=== PATIENT | female | born 1980 | race Caucasian/White ===

== ENCOUNTER 2017-07-11 08:55 | Emergency (ER) | payer BC ==
[~2017-07-11] VITALS: Ht 165.1 cm; Wt 79.1 kg
[~2017-07-11 08:55] MED LIST: ESCI10TA17 PO; ESZO2TAB3 PO; NEBI2.5T2 PO; OMEP40CA PO
[2017-07-11 09:01] VITALS: TEMP 36.6; Ht 165.1 cm; Wt 79.1 kg
[2017-07-11] MEDS ORDERED: LORAZEPAM 1 MG TAB SL STA (09:36)
[2017-07-11 10:00] VITALS: O2SAT 100
--- NOTE | 2017-07-11 10:01 | EMERGENCY ROOM VISIT NOTE ---
History Report prepared by Urvashi: Marcelina Hooker Under the Supervision of: Dr. Sukh Lynne M.D. First contact with patient: 09:31 Chief Complaint: OTHER COMPLAINT Stated Complaint: SHAKING,TINGLING HANDS/LIPS,BLURRED VISION History of Present Illness The patient is a 36 year old female who presents to the Emergency Room with complaints of an episode of anxiety beginning 3 hours [employer] G[employer]. The patient took Advil cold and sinus this morning around 5am for sinus congestion and itchy, watery eyes. She has never taken this medication before. About 1.5 hours later she developed shaking in her hands and numbness and tingling in her lips and extremities. The patient states that she feels like she is going to crawl out of her skin. Her heart is racing and she states that she is "not hearing correctly." She denies any abdominal pain or urinary symptoms. She denies any personal history of thyroid problems. The patient has had a similar reaction after taking Benadryl and compazine in the past. Source of History: patient Onset: 3 hours [employer]AL[employer] GASOLINE Position: other (global) Quality: other (anxiety) Timing: other (episode) Modifying Factors (Worsening): other (Medication) Associated Symptoms: + numbness, No abdominal pain, No urinary symptoms Note: Pt has shaking. Review of Systems All systems have been listed, reviewed, and are negative other than those previously mentioned. Please see Additional Medical History Sheet. Past Medical & Surgical Medical Problems: (1) Acute costochondritis (2) Costochondral pain Family History Patient reports no known family medical history. Social History Smoking Status: Never Smoker Smokeless Tobacco Use: No Alcohol Use: occasionally Marital Status: Housing Status: lives with significant other Occupation Status: employed Current/Historical Medications Scheduled Escitalopram (Lexapro), 10 MG PO DAILY Allergies Coded Allergies: Prochlorperazine (Unverified Allergy, Unknown, ., 07/11/17) Physical Exam Vital Signs Date Time Temp Pulse Resp B/P (MAP) Pulse Ox O2 Delivery O2 Flow Rate FiO2 07/11/17 13:20 90 18 99/74 99 07/11/17 11:56 105 18 111/75 97 07/11/17 11:00 100 20 117/75 97 07/11/17 10:15 84 20 119/79 100 07/11/17 10:06 108 07/11/17 10:00 100 Room Air 07/11/17 09:01 36.6 108 24 145/85 96 Room Air Physical Exam GENERAL: Patient awake, alert, oriented x 3. Patient follows commands. Patient does not appear toxic. Patient is very anxious appearing. Patient is adequately hydrated and well-nourished. SKIN: No erythema, pallor, cyanosis or rash HEENT: Normal head, pupils equal, reactive to light and accommodation. Ears normal. Oral cavity and posterior pharynx appear normal. Neck: Without adenopathy, no neck vein distention. LUNGS: Tachypneic. Clear to auscultation. No wheezes, no rales, no rhonchi. HEART: Rapid and regular. No murmurs. No gallops. No rubs ABDOMEN: Soft, nontender. EXTREMITIES: No signs of trauma or infection NEUROLOGIC: Cranial nerves II-XII within normal limits. No gross motor sensory function deficits. PSYCHIATRIC: Patient is awake alert but appears very anxious. The patient is jittery and shaky. Medical Decision & Procedures Laboratory Results 07/11/17 09:48 07/11/17 09:48 Test 07/11/17 09:48 Red Blood Count 4.78 M/uL (4.2-5.4) Mean Corpuscular Volume 84.5 fL (80-100) Mean Corpuscular Hemoglobin 30.1 pg (25-34) Mean Corpuscular Hemoglobin Concent 35.6 g/dl (32-36) RDW Standard Deviation 40.1 fL (36.4-46.3) RDW Coefficient of Variation 13.2 % (11.5-14.5) Mean Platelet Volume 8.9 fL (7.4-10.4) Anion Gap 13.0 mmol/L (3-11) Est Creatinine Clear Calc Drug Dose 104.3 ml/min Estimated GFR () 115.3 Estimated GFR (Non- 99.5 BUN/Creatinine Ratio 8.9 (10-20) Calcium Level 9.1 mg/dl (8.5-10.1) Thyroid Stimulating Hormone (TSH) 2.600 uIu/ml (0.300-4.500) Laboratory results as stated above per my review. Medications Administered Medications (Trade) Dose Ordered Sig/[place] Route Start Time Stop Time Status Last Admin Dose Admin Lorazepam (Ativan Tab) 1 mg NOW STAT SL 07/11/17 09:36 07/11/17 09:38 DC 07/11/17 09:43 1 MG Lorazepam (Ativan Inj) 1 mg NOW STAT IV 07/11/17 10:52 07/11/17 10:53 DC 07/11/17 11:01 1 MG Lorazepam (Ativan Inj) 1 mg NOW STAT IV 07/11/17 12:03 07/11/17 12:06 DC 07/11/17 12:22 1 MG Lorazepam (Ativan 1MG Home Pack) 1 homepack UD ONCE PO 07/11/17 13:00 07/11/17 13:01 DC 07/11/17 13:00 1 HOMEPACK ECG Indication: other Rate (beats per minute): 89 Rhythm: sinus with SA Findings: no acute ischemic change, no ectopy ED Course 0931: Past medical records reviewed. The patient was evaluated in room A2. A complete history and physical examination was performed. 0936: Ativan 1 mg SL 1051: Upon reevaluation the patient is still experiencing symptoms. 1052: Ativan 1 mg IV 1159: I reassessed the patient and she is better but still uncomfortable. 1203: Ativan 1 mg IV 1249: I reassessed the patient at this time. She is feeling better and eating lunch. I discussed the results and treatment plan with the patient. I answered all pertaining questions that she had. She expressed understanding and verbalized agreement. The patient will be discharged home. 1300: Ativan 1 mg PO 1 homepack Medical Decision Differential diagnoses includes hyperventilation, anxiety. hyperthyroidism, medication reaction, akathisia. 36-year-old female with significant anxiety and hyperventilation after taking cold medication this morning. The patient has had some similar type symptoms in the past after certain medications including Benadryl. The patient was observed for over 4 hours. The patient improved dramatically after multiple doses of Ativan. The patient's symptoms are most consistent with akathisia. Medication Reconcilliation Current Medication List: was personally reviewed by me Blood Pressure Screening Patient's blood pressure: Normal blood pressure Impression Primary Impression: Drug induced akathisia Scribe Attestation The scribe's documentation has been prepared under my direction and personally reviewed by me in its entirety. I confirm that the note above accurately reflects all work, treatment, procedures, and medical decision making performed by me. Departure Information Dispostion Home / Self-Care Referrals No Doctor, Assigned (PCP) Forms HOME CARE DOCUMENTATION FORM, IMPORTANT VISIT INFORMATION, WORK / SCHOOL INSTRUCTIONS Patient Instructions My [facility] Additional Instructions 1 Ativan every 4 hours as needed for anxiety symptoms. Refrain from taking any cold medications.
[2017-07-11 10:02] LABS: HEMATOCRIT 40.4 % (37-47); MEAN CELL VOLUME 84.5 fL (80-100); MEAN CORPUSCULAR HEMOGLOBIN 30.1 pg (25-34); MEAN CORPUSCULAR HGB CONC 35.6 g/dl (32-36); MEAN PLATELET VOLUME 8.9 fL (7.4-10.4); PLATELET COUNT 177 K/uL (130-400); RED BLOOD COUNT 4.78 M/uL (4.2-5.4); WHITE BLOOD COUNT 9.32 K/uL (4.8-10.8)
[2017-07-11 10:18] LABS: BUN/CREATININE RATIO 8.9 (10-20); CALCIUM 9.1 mg/dl (8.5-10.1); CREATININE 0.76 mg/dl (0.60-1.20)
[2017-07-11 10:28] LABS: THYROID STIMULATING HORMONE 2.6 uIu/ml (0.300-4.500)
[2017-07-11] MEDS ORDERED: LORAZEPAM 2 MG/ML 1 ML VIAL IV STA ×2 (10:52→12:03)
[2017-07-11] MEDS ORDERED: ATIVAN 1MG HOMEPACK PO ONE (13:00)
[2017-07-11 13:20] VITALS: BP 99/74; PULSE 90; O2SAT 99
== END 2017-07-11 13:21 | disposition home or self-care (01) ==
LOC: C.EDB 08:57 → C.EDA 13:21
DX: G25.71 Drug induced akathisia (principal); Z79.899 Other long term (current) drug therapy

== ENCOUNTER 2019-12-15 11:49 | Inpatient (IN) ==
--- OUTSIDE RECORDS SUMMARY | 2019-12-15 11:51 | External Medical Summary | Continuity of Care Document ---
:1980 Author Name Fred Wang, Provider Address Unavailable Unavailable , Care Team Providers Name Role Phone Unavailable Unavailable Unavailable Jonathan Hatch PA-C Unavailable [email or web address] Bradly TOWNSEND Unavailable [email or web address] Unavailable Unavailable Unavailable Unavailable Unavailable Problems Atypical chest pain (786.59) (R07.89) Sinus tachycardia (427.89) (R00.0) Abdominal tenderness, right upper quadrant (789.61) (R10.811 ) Neck pain (723.1) (M54.2) Palpitations (785.1) (R00.2) 2nd degree AV block (426.13) (I44.1) Diarrhea (787.91) (R19.7) Vitamin D deficiency (268.9) (E55.9) Vitamin B12 deficiency (266.2) (E53.8) Esophageal reflux (530.81) (K21.9) Fatty liver (571.8) (K76.0) Nausea (787.02) (R11.0) Elevated transaminase level (790.4) (R74.0) Allergies and Adverse Reactions Advil CAPS (Allergy) Reaction: Nausea, O ther Compazine SOLN (Allergy) Reaction: Irrit ability, Other Medications Metoprolol Succinate ER 50 MG Oral Table t Extended Release 24 Hour; TAKE 1 TABLET DAILY. CHRISTOPHER Hatch Start: 26-Sep-2014 Quantity: 30 Refills: 6 Mirena (52 MG) IUD Felipe Refills: 0 Omeprazole 40 MG Oral Capsule Delayed Re lease; TAKE 1 CAPSULE Daily Take in AM 1/2 hour before breakfast CaseDO Job Start: 01-Mar-2013 Quantity: 90 Refills: 3 Procedures History of Ovarian Surgery Status: Compl eted History of Gastric Surgery Status: Compl eted History of Laparoscopic Sling Operation For Stress Incontine nce Status: Completed History of Gynecologic Services Intrauterine Device (IUD) Status: Completed Insertion History of Cholecystectomy Status: Compl eted History of Gastric Surgery For Morbid Obesity Bypass With Status: Completed Dayana-en-Y Immunizations PPD On: 26-Aug-2012 16:21 Lot #: [id number], SANOFI PASTEUR Family History Grandmother Family history of Ulcerative Colitis Status: Active Mother No pertinent family history (V49.89) (Z78.9) Status: Active Social History - Smoking Status Never smoker Plan of Treatment Planned Observations Planned Goals not documented Results No Known Results Results not documented
--- OUTSIDE RECORDS SUMMARY | 2019-12-15 11:52 | External Medical Summary | Continuity of Care Document ---
:1980 Author Name Fred Wang, Provider Address Unavailable Unavailable , Care Team Providers Name Role Phone Unavailable Unavailable Unavailable Jonathan Hatch PA-C Unavailable [email or web address] Marcus [email or web address] Unavailable [email or web address] Unavailable Unavailable Unavailable Unavailable Unavailable Problems Neck pain (723.1) (M54.2) Abdominal tenderness, right upper quadrant (789.61) (R10.811 ) Diarrhea (787.91) (R19.7) Esophageal reflux (530.81) (K21.9) Vitamin B12 deficiency (266.2) (E53.8) Vitamin D deficiency (268.9) (E55.9) Elevated transaminase level (790.4) (R74.0) 2nd degree AV block (426.13) (I44.1) Palpitations (785.1) (R00.2) Atypical chest pain (786.59) (R07.89) Sinus tachycardia (427.89) (R00.0) Nausea (787.02) (R11.0) Fatty liver (571.8) (K76.0) Allergies and Adverse Reactions Advil CAPS (Allergy) Reaction: Nausea, O ther Compazine SOLN (Allergy) Reaction: Irrit ability, Other Medications Omeprazole 40 MG Oral Capsule Delayed Re lease; TAKE 1 CAPSULE Daily Take in AM 1/2 hour before breakfast CaseDO Job Start: 01-Mar-2013 Quantity: 90 Refills: 3 Mirena (52 MG) IUD Felipe Refills: 0 Metoprolol Succinate ER 50 MG Oral Table t Extended Release 24 Hour; TAKE 1 TABLET DAILY. CHRISTOPHER Hatch Start: 26-Sep-2014 Quantity: 30 Refills: 6 Procedures History of Ovarian Surgery Status: Compl eted History of Gastric Surgery Status: Compl eted History of Laparoscopic Sling Operation For Stress Incontine nce Status: Completed History of Gynecologic Services Intrauterine Device (IUD) Status: Completed Insertion History of Cholecystectomy Status: Compl eted History of Gastric Surgery For Morbid Obesity Bypass With Status: Completed Dayana-en-Y Immunizations PPD On: 26-Aug-2012 16:21 Lot #: [id number], SANOFI PASTEUR Family History Grandmother Family history of Ulcerative Colitis Status: Active Mother No pertinent family history (V49.89) (Z78.9) Status: Active Social History - Smoking Status Never smoker Plan of Treatment Planned Observations Planned Goals not documented Results No Known Results Results not documented
[2019-12-15] MEDS ORDERED: MULTI-VITAMIN INFUSION 10 ML, THIAMINE HCL 100 MG, FOLIC ACID 1 MG in SODIUM CHLORIDE 0... IV ONE (12:44)
[2019-12-15] MEDS ORDERED: ONDANSETRON INJ 2 MG/ML 2 ML VIAL IV STA ×2 (12:44→16:13)
[2019-12-15] MEDS ORDERED: LORazepam 1 MG TAB SL STA (13:13)
[2019-12-15 13:34] LABS: Basophils # (auto) 0.02 K/uL (0-0.2); Basophils % (auto) 0.3 %; Hematocrit (blood only) 48.9 % (37-47); Hemoglobin 17.4 g/dL (12.0-16.0); Immature Granulocytes # (auto) 0.01 K/uL (0.00-0.02); Immature Granulocytes % (auto) 0.1 %; Lymphocytes # (auto) 1.56 K/uL (1.2-3.4); Lymphocytes % (auto) 22.5 %; Mean Corpuscular Hemoglobin 31.4 pg (25-34); Mean Corpuscular Hgb Conc 35.6 g/dL (32-36); Mean Corpuscular Volume 88.3 fL (80-100); Mean Platelet Volume 8.9 fL (7.4-10.4); Monocytes # (auto) 0.25 K/uL (0.11-0.59); Monocytes % (auto) 3.6 %; Neutrophils # (auto) 5.09 K/uL (1.4-6.5); Neutrophils % (auto) 73.5 %; Platelet Count 153 K/uL (130-400); RDW Standard Deviation 41.5 fL (36.4-46.3); Red Blood Count 5.54 M/uL (4.2-5.4); White Blood Count 6.93 K/uL (4.8-10.8)
[2019-12-15 13:51] LABS: Appearance Urine Cloudy (Clear); Bacteria Urine Automated 1+ (Negative); Bilirubin Urine Negative (Negative); Blood Urine Trace (Negative); Color Urine Yellow; Epithelial Cell Urine Auto >30 /lpf (0-5); Glucose Urine UA Negative (Negative); Ketones Urine 1+ (Negative); Leukocyte Esterase Urine Negative (Negative); Nitrite Urine Negative (Negative); Protein Urine Trace (Negative); RBC Urine Automated 0-4 /hpf (0-4); Specific Gravity Urine 1.009 (1.000-1.030); Urobilinogen Urine Negative (Negative); pH Urine 5.5 (4.5-7.5)
[2019-12-15 13:52] LABS: Acetaminophen < 2 ug/ml (10-30); Albumin Level 3.8 gm/dl (3.4-5.0); BUN Creatinine Ratio 8.7 (10-20); Bilirubin,Total 0.5 mg/dl (0.2-1); Calcium 8.6 mg/dl (8.5-10.1); Creatinine Clr Calc Pharmacy 77.5 ml/min; Est GFR (African American) 97.3; Est GFR (Non-African American) 83.9; Globulin 3.8 gm/dl (2.5-4.0); Potassium 3.9 mmol/L (3.5-5.1); Salicylate 1.8 mg/dl (2.8-20); Thyroid Stimulating Hormone 1.3 uIu/ml (0.300-4.500); Total Protein 7.6 gm/dl (6.4-8.2)
[2019-12-15 13:59] LABS: Amphetamines+Metham, Urine Neg (Neg); Barbiturates, Urine Neg (Neg); Benzodiazepine, Urine Neg (Neg); Cocaine, Urine Neg (Neg); MDMA (Ecstacy), Urine Neg (Neg); Methadone, Urine Neg (Neg); Opiate, Urine Neg (Neg); Phencyclidine, Urine Neg (Neg)
--- NOTE | 2019-12-15 14:20 | Emergency Department Note ---
Entered by Avril Sandy acting as a scribe for History of Present Illness General Chief complaint: Mental Health Evaluation Stated complaint: ALCOHOL OVERDOSE, FALL Time Seen by Provider: 12/15/19 12:03 Source: patient History of Present Illness Provider complaint: Alcohol Overdose Onset (ago): hour(s) 2 Location: head Relieved By: + none Exacerbated By: + other (Family stress) Associated symptoms: + other (SI) The patient is a 39 year old female who presents to the Emergency Room with complaints of alcohol overdose that occurred about 2 hours ago. The patient states that her symptoms are exacerbated by stress and not relieved by anything specific. The patient notes that her cousin's son shot himself in the face on Thursday night and she had to help her cousin plan the arrangements and clean up the son's room and she is not coping well. The patient states that she took an Uber to the liquor store around 10am and purchased a bottle of vodka because she "just hurt so bad." The patient states that she does not usu ally use alcohol for coping mechanisms and does not know how much she drank. The patient reports experiencing positive SI as a result of the drinking binge that she went on this morning and states that she "feels like a loser." According to the patient's , the patient drinks socially but goes on "binge benders" and drinks half bottles of vodka at a time during these binges. The patient's sband states that she was drinking Thursday, Thursday, Thursday, Thursday, and this morning and has been sneaking around. On Thursday night the patient went into the bathroom and came out with a handful of pills and said "she just wants to ." This morning the patient's states that he found the patient lying face down in a pile of leaves in their mendez with a 750mL bottle of vodka half empty next to her. 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 Home Medications Home Medications Medication Instructions Recorded Confirmed Type Escitalopram (Lexapro) 10 mg PO DAILY #0 tab 11/20/13 12/15/19 History trazodone 25 mg PO HS PRN 12/15/19 12/15/19 History Allergies Allergy/AdvReac Type Severity Reaction Status Date / Time No Known Allergies Allergy Unverified 12/15/19 14:11 Past Med/Surg History Medical History No pertinent past medical history Surgical History H/O unilateral oophorectomy Family History Other No pertinent family history in first degree relatives Social History Feels Safe at Home: Yes Smoking Status: Never smoker Review of Systems See HPI for pertinent positives & negatives. and A total of 10 systems reviewed and were otherwise negative Physical Exam Vital Signs Vital Signs - 24 hr 12/15/19 11:49 12/15/19 11:51 12/15/19 15:32 Temperature 36.8 C Temperature Source Oral Pulse Rate 149 H 125 H Pulse Rate [Apical] Pulse Rate from SpO2 Sensor 124 H Respiratory Rate 20 22 Respiratory Effort / Characteristics Non-Labored Spontaneous Respiratory Depth Normal Respiratory Pattern Regular Blood Pressure 129/83 83/52 L Blood Pressure [Left Arm] Blood Pressure Mean 98 71 Blood Pressure Mean [Left Arm] Blood Pressure Position Sitting Pulse Oximetry 98 96 94 Oxygen Delivery Method Room Air Room Air Sepsis Recent Fever Within 48 Hours No Sepsis New/Unexplained Change in Mental Status No Sepsis Action Taken by Nursing No Action Required 12/15/19 15:38 12/15/19 15:40 12/15/19 16:00 Temperature Temperature Source Pulse Rate 119 H 121 H Pulse Rate [Apical] 126 H Pulse Rate from SpO2 Sensor 120 H 121 H Respiratory Rate 20 21 19 Respiratory Effort / Characteristics Non-Labored Spontaneous Respiratory Depth Normal Respiratory Pattern Regular Blood Pressure 113/74 Blood Pressure [Left Arm] 83/52 L Blood Pressure Mean 83 Blood Pressure Mean [Left Arm] 62 Blood Pressure Position Pulse Oximetry 94 94 97 Oxygen Delivery Method Room Air Sepsis Recent Fever Within 48 Hours Sepsis New/Unexplained Change in Mental Status Sepsis Action Taken by Nursing 12/15/19 16:30 12/15/19 17:00 12/15/19 17:30 Temperature Temperature Source Pulse Rate 98 H 114 H 109 H Pulse Rate [Apical] Pulse Rate from SpO2 Sensor 99 H 117 H 110 H Respiratory Rate 13 19 22 Respiratory Effort / Characteristics Respiratory Depth Respiratory Pattern Blood Pressure 108/71 94/60 L Blood Pressure [Left Arm] Blood Pressure Mean 80 77 Blood Pressure Mean [Left Arm] Blood Pressure Position Pulse Oximetry 98 97 94 Oxygen Delivery Method Sepsis Recent Fever Within 48 Hours Sepsis New/Unexplained Change in Mental Status Sepsis Action Taken by Nursing 12/15/19 18:00 12/15/19 18:30 12/15/19 19:00 Temperature Temperature Source Pulse Rate 118 H 123 H 111 H Pulse Rate [Apical] Pulse Rate from SpO2 Sensor 118 H 128 H 107 H Respiratory Rate 18 18 20 Respiratory Effort / Characteristics Respiratory Depth Respiratory Pattern Blood Pressure 93/60 L 118/72 113/76 Blood Pressure [Left Arm] Blood Pressure Mean 65 90 88 Blood Pressure Mean [Left Arm] Blood Pressure Position Pulse Oximetry 94 96 97 Oxygen Delivery Method Sepsis Recent Fever Within 48 Hours Sepsis New/Unexplained Change in Mental Status Sepsis Action Taken by Nursing 12/15/19 19:30 12/15/19 20:00 Temperature Temperature Source Pulse Rate 110 H 128 H Pulse Rate [Apical] Pulse Rate from SpO2 Sensor 109 H Respiratory Rate 12 15 Respiratory Effort / Characteristics Respiratory Depth Respiratory Pattern Blood Pressure 112/89 116/72 Blood Pressure [Left Arm] Blood Pressure Mean 94 81 Blood Pressure Mean [Left Arm] Blood Pressure Position Pulse Oximetry 96 Oxygen Delivery Method Sepsis Recent Fever Within 48 Hours Sepsis New/Unexplained Change in Mental Status Sepsis Action Taken by Nursing CONSTITUTIONAL/VITAL SIGNS: Reviewed / noted above. GENERAL: Non-toxic in appearance. Smell of alcohol on her breath, INTEGUMENTARY: Warm, dry, and [place]. HEAD: Normocephalic. EYES: without scleral icterus or trauma. ENT/OROPHARYNX: clear and moist. LYMPHADENOPATHY/NECK: Is supple without lymphadenopathy or meningismus. RESPIRATORY: Lungs clear and equal. CARDIOVASCULAR: Regular rate and rhythm. GI/ABDOMEN: Soft and nontender. No organomegaly or pulsatile mass. No rebound or guarding. Normal bowel sounds. EXTREMITIES: Warm and well perfused. BACK: No CVA tenderness. NEUROLOGICAL: Intact without focal deficits. PSYCHIATRIC: Depressed affect. MUSCULOSKELETAL: Normally developed with good muscle tone. Course Course 1207: Past medical records reviewed. The patient was evaluated in room A05. A complete history and physical exam was performed. 20:[address] Vishal Administered Medications Discontinued Medications Multivitamins 10 ml/ Thiamine HCl 100 mg/ Folic Acid 1 mg/Sodium Chloride 1,011.2 mls @ 1,011.2 mls/hr IV .Q1H ONE Stop: 12/15/19 13:43 Last Infusion: 12/15/19 14:29 Dose: 0 mls/hr Documented by: [id number] Admin: 12/15/19 13:28 Dose: 1,011.2 mls/hr Documented by: [id number] Lorazepam (Ativan) 1 mg in 2 mls @ 2 mls/min IV NOW STA Stop: 12/15/19 16:13 Last Admin: 12/15/19 16:18 Dose: 2 mls/min Documented by: [id number] Lorazepam (Ativan) 1 mg in 2 mls @ 2 mls/min IV NOW STA Stop: 12/15/19 19:12 Last Admin: 12/15/19 19:34 Dose: 2 mls/min Documented by: [id number] Sodium Chloride (Nss) 500 mls @ 999 mls/hr IV .Q31M ONE Stop: 12/15/19 19:41 Last Infusion: 12/15/19 20:14 Dose: 0 mls/hr Documented by: [id number] Admin: 12/15/19 19:34 Dose: 999 mls/hr Documented by: [id number] Lorazepam (Ativan) 1 mg SL NOW STA Stop: 12/15/19 13:14 Last Admin: 12/15/19 13:28 Dose: 1 mg Documented by: [id number] Ondansetron HCl (Zofran) 4 mg IV NOW STA Stop: 12/15/19 12:45 Last Admin: 12/15/19 13:28 Dose: 4 mg Documented by: [id number] Ondansetron HCl (Zofran) 4 mg IV NOW STA Stop: 12/15/19 16:14 Last Admin: 12/15/19 16:17 Dose: 4 mg Documented by: [id number] Medical Decision Making Differential Diagnosis Differential diagnosis: Etiologies such as psychiatric disorder, infection, hypoglycemia, electrolyte abnormalities, cardiac sources, intracerebral event, toxicological process, neurologic disorder, as well as others were entertained. Medical Records Attestation: I reviewed the patient's medical records. Home Medications Current Medication List: was personally reviewed by me Laboratory Data Attestation: I reviewed the patient's lab results. Result diagrams: 12/15/19 13:05 12/15/19 13:05 Lab Results 12/15/19 12/15/19 12/15/19 Range/Units 12:03 12:03 12:03 WBC (4.8-10.8) K/uL RBC (4.2-5.4) M/uL Hgb (12.0-16.0) g/dL Hct (37-47) % MCV (80-100) fL MCH (25-34) pg MCHC (32-36) g/dL RDW Std Deviation (36.4-46.3) fL RDW Coeff of Jose Enrique (11.5-14.5) % Plt Count (130-400) K/uL MPV (7.4-10.4) fL Immature Gran % (Auto) % Neut % (Auto) % Lymph % (Auto) % [facility] [facility] % (Auto) % Eos % (Auto) % Baso % (Auto) % Immature Gran # (Auto) (0.00-0.02) K/uL Neut # (Auto) (1.4-6.5) K/uL Lymph # (Auto) (1.2-3.4) K/uL [facility] # (Auto) (0.11-0.59) K/uL Eos # (Auto) (0-0.5) K/uL Baso # (Auto) (0-0.2) K/uL Sodium (136-145) mmol/L Potassium (3.5-5.1) mmol/L Chloride (98-107) mmol/L Carbon Dioxide (21-32) mmol/L Anion Gap (3-11) BUN (7-18) mg/dl Creatinine (0.6-1.2) mg/dl Est Cr Clr Drug Dosing ml/min Est GFR ( Amer) Est GFR (Non-Af Amer) BUN/Creatinine Ratio (10-20) Glucose (70-99) mg/dl Calcium (8.5-10.1) mg/dl Total Bilirubin (0.2-1) mg/dl AST (15-37) U/L ALT (12-78) U/L Alkaline Phosphatase (45-117) U/L Total Protein (6.4-8.2) gm/dl Albumin (3.4-5.0) gm/dl Globulin (2.5-4.0) gm/dl Albumin/Globulin Ratio (0.9-2) TSH (0.300-4.500) uIu/ml Urine Color Yellow Urine Appearance Cloudy A (Clear) Urine pH 5.5 (4.5-7.5) Ur Specific [place] 1.009 (1.000-1.030) Urine Protein Trace H (Negative) Urine Glucose (UA) Negative (Negative) Urine Ketones 1+ H (Negative) Urine Blood Trace H (Negative) Urine Nitrite Negative (Negative) Urine Bilirubin Negative (Negative) Urine Urobilinogen Negative (Negative) Ur Leukocyte Esterase Negative (Negative) Urine WBC (Auto) 1-5 (0-5) /hpf Urine RBC (Auto) 0-4 (0-4) /hpf U Hyaline Cast (Auto) 1-5 (0-5) /lpf U Epithel Cells (Auto) >30 H (0-5) /lpf Urine Bacteria (Auto) 1+ H (Negative) POC Ur Test NEG (NEG) Salicylates (2.8-20) mg/dl Urine Opiates Screen Neg (Neg) Ur Methadone, Qual Neg (Neg) Acetaminophen (10-30) ug/ml Urine Barbiturates Neg (Neg) Ur Phencyclidine (PCP) Neg (Neg) U Amphetamin/Meth Scrn Neg (Neg) MDMA (Ecstasy) Screen Neg (Neg) U Benzodiazepines Scrn Neg (Neg) Ur Cocaine Metabolite Neg (Neg) U Marijuana (THC) Screen Neg (Neg) Ethyl Alcohol mg/dL (0-3) mg/dl 12/15/19 12/15/19 12/15/19 Range/Units 13:05 13:05 13:05 WBC 6.93 (4.8-10.8) K/uL RBC 5.54 H (4.2-5.4) M/uL Hgb 17.4 H (12.0-16.0) g/dL Hct 48.9 H (37-47) % MCV 88.3 (80-100) fL MCH 31.4 (25-34) pg MCHC 35.6 (32-36) g/dL RDW Std Deviation 41.5 (36.4-46.3) fL RDW Coeff of Jose Enrique 13.0 (11.5-14.5) % Plt Count 153 (130-400) K/uL MPV 8.9 (7.4-10.4) fL Immature Gran % (Auto) 0.1 % Neut % (Auto) 73.5 % Lymph % (Auto) 22.5 % [facility] % (Auto) 3.6 % Eos % (Auto) 0.0 % Baso % (Auto) 0.3 % Immature Gran # (Auto) 0.01 (0.00-0.02) K/uL Neut # (Auto) 5.09 (1.4-6.5) K/uL Lymph # (Auto) 1.56 (1.2-3.4) K/uL [facility] # (Auto) 0.25 (0.11-0.59) K/uL Eos # (Auto) 0.00 (0-0.5) K/uL Baso # (Auto) 0.02 (0-0.2) K/uL Sodium 141 (136-145) mmol/L Potassium 3.9 (3.5-5.1) mmol/L Chloride 103 (98-107) mmol/L Carbon Dioxide 24 (21-32) mmol/L Anion Gap 14.0 H (3-11) BUN 7 (7-18) mg/dl Creatinine 0.86 (0.6-1.2) mg/dl Est Cr Clr Drug Dosing 77.5 ml/min Est GFR ( Amer) 97.3 Est GFR (Non-Af Amer) 83.9 BUN/Creatinine Ratio 8.7 L (10-20) Glucose 107 H (70-99) mg/dl Calcium 8.6 (8.5-10.1) mg/dl Total Bilirubin 0.5 (0.2-1) mg/dl AST 85 H (15-37) U/L ALT 47 (12-78) U/L Alkaline Phosphatase 104 (45-117) U/L Total Protein 7.6 (6.4-8.2) gm/dl Albumin 3.8 (3.4-5.0) gm/dl Globulin 3.8 (2.5-4.0) gm/dl Albumin/Globulin Ratio 1.0 (0.9-2) TSH 1.300 (0.300-4.500) uIu/ml Urine Color Urine Appearance (Clear) Urine pH (4.5-7.5) Ur Specific [place] (1.000-1.030) Urine Protein (Negative) Urine Glucose (UA) (Negative) Urine Ketones (Negative) Urine Blood (Negative) Urine Nitrite (Negative) Urine Bilirubin (Negative) Urine Urobilinogen (Negative) Ur Leukocyte Esterase (Negative) Urine WBC (Auto) (0-5) /hpf Urine RBC (Auto) (0-4) /hpf U Hyaline Cast (Auto) (0-5) /lpf U Epithel Cells (Auto) (0-5) /lpf Urine Bacteria (Auto) (Negative) POC Ur Test (NEG) Salicylates 1.8 L (2.8-20) mg/dl Urine Opiates Screen (Neg) Ur Methadone, Qual (Neg) Acetaminophen < 2 L (10-30) ug/ml Urine Barbiturates (Neg) Ur Phencyclidine (PCP) (Neg) U Amphetamin/Meth Scrn (Neg) MDMA (Ecstasy) Screen (Neg) U Benzodiazepines Scrn (Neg) Ur Cocaine Metabolite (Neg) U Marijuana (THC) Screen (Neg) Ethyl Alcohol mg/dL (0-3) mg/dl 12/15/19 Range/Units 13:05 WBC (4.8-10.8) K/uL RBC (4.2-5.4) M/uL Hgb (12.0-16.0) g/dL Hct (37-47) % MCV (80-100) fL MCH (25-34) pg MCHC (32-36) g/dL RDW Std Deviation (36.4-46.3) fL RDW Coeff of Jose Enrique (11.5-14.5) % Plt Count (130-400) K/uL MPV (7.4-10.4) fL Immature Gran % (Auto) % Neut % (Auto) % Lymph % (Auto) % [facility] [place] % (Auto) % Eos % (Auto) % Baso % (Auto) % Immature Gran # (Auto) (0.00-0.02) K/uL Neut # (Auto) (1.4-6.5) K/uL Lymph # (Auto) (1.2-3.4) K/uL [facility] [place] # (Auto) (0.11-0.59) K/uL Eos # (Auto) (0-0.5) K/uL Baso # (Auto) (0-0.2) K/uL Sodium (136-145) mmol/L Potassium (3.5-5.1) mmol/L Chloride (98-107) mmol/L Carbon Dioxide (21-32) mmol/L Anion Gap (3-11) BUN (7-18) mg/dl Creatinine (0.6-1.2) mg/dl Est Cr Clr Drug Dosing ml/min Est GFR ( Amer) Est GFR (Non-Af Amer) BUN/Creatinine Ratio (10-20) Glucose (70-99) mg/dl Calcium (8.5-10.1) mg/dl Total Bilirubin (0.2-1) mg/dl AST (15-37) U/L ALT (12-78) U/L Alkaline Phosphatase (45-117) U/L Total Protein (6.4-8.2) gm/dl Albumin (3.4-5.0) gm/dl Globulin (2.5-4.0) gm/dl Albumin/Globulin Ratio (0.9-2) TSH (0.300-4.500) uIu/ml Urine Color Urine Appearance (Clear) Urine pH (4.5-7.5) Ur Specific [place] (1.000-1.030) Urine Protein (Negative) Urine Glucose (UA) (Negative) Urine Ketones (Negative) Urine Blood (Negative) Urine Nitrite (Negative) Urine Bilirubin (Negative) Urine Urobilinogen (Negative) Ur Leukocyte Esterase (Negative) Urine WBC (Auto) (0-5) /hpf Urine RBC (Auto) (0-4) /hpf U Hyaline Cast (Auto) (0-5) /lpf U Epithel Cells (Auto) (0-5) /lpf Urine Bacteria (Auto) (Negative) POC Ur Test (NEG) Salicylates (2.8-20) mg/dl Urine Opiates Screen (Neg) Ur Methadone, Qual (Neg) Acetaminophen (10-30) ug/ml Urine Barbiturates (Neg) Ur Phencyclidine (PCP) (Neg) U Amphetamin/Meth Scrn (Neg) MDMA (Ecstasy) Screen (Neg) U Benzodiazepines Scrn (Neg) Ur Cocaine Metabolite (Neg) U Marijuana (THC) Screen (Neg) Ethyl Alcohol mg/dL 295.0 H (0-3) mg/dl Blood Pressure Blood Pressure Findings: Elevated blood pressure Blood Pressure Disposition: Referred to patients primary care provider QUINTIN Narrative This is a 39-year-old female who presents to the ED with a chief complaint of mental health disorder and alcohol intoxication. The information was obtained from the patient which was somewhat inaccurate as well as from the . He corrected some of the inaccuracies in the patient's statements. The patient's cousins 13-year-old son committed suicide on Thursday. The patient and her helped to clean things up on Thursday or Thursday. The patient does have a history of binge alcohol use and has been drinking alcohol since the event. She has been sneaking alcohol and going to the alcohol store without her 's knowledge. She has been drinking vodka. The patient does report that she is depressed and feels like she wants to hurt herself over today's events of being brought here. She otherwise did not report wanting to hurt herself other than for feeling bad with regards to her alcohol consumption recently. Her reports that she has not had any thoughts of suicide previously. Further details listed above. The patient's physical exam as noted above. She does appear to be depressed and smells of alcohol. Her alcohol level today is 295 at 1300 hrs. She will be medically cleared for mental health evaluation at 2300 hrs. Her CBC, chemistry panel, TSH, test and urinalysis was unremarkable. test was negative and urinalysis appears contaminated. Talk screen was negative. The patient was given IV Zofran x2 for nausea as well as a banana bag IV as well as several doses of p.o./IV Ativan for anxiety. She will need evaluated at 2300 hrs. by the mental health watch caser. The patient was signed out to Dr. Rodgers at shift change (8:30PM). Impression & Plan Alcohol intoxication, Depression Discharge Plan Visit Data Chief Complaint: Mental Health Evaluation Stated Complaint: ALCOHOL OVERDOSE, FALL Other Complaint: Alcohol Intoxication ED Provider: Oneil Perez Discharge Problem: Alcohol intoxication, Depression Forms Stand Alone Forms: My [facility], Suicide Prevention Resources Prescriptions Prescriptions: No Action Escitalopram (Lexapro) 10 MG tablet 10 mg PO DAILY Qty: 0 RF: 0 trazodone 50 mg Tablet 25 mg PO HS PRN (Reason: Anxiety) RF: 0 Referrals Referrals: Corazon Yeh D.O. [Primary Care Provider] - Discharge Problem: Alcohol intoxication Qualifiers: Complication of substance-induced condition: uncomplicated Qualified Code(s): F10.920 - Alcohol use, unspecified with intoxication, uncomplicated Depression Qualifiers: Depression Type: reactive depression Qualified Code(s): F32.9 - Major depressive disorder, single episode, unspecified The scribe's documentation has been prepared under my direction and personally reviewed by me in its entirety. I confirm that the note above accurately reflects all work, treatment, procedures, and medical decision making performed by me.
[2019-12-15] MEDS ORDERED: LORazepam 1 MG/2 ML VIAL IV STA ×3 (16:12→22:49)
[2019-12-15] MEDS ORDERED: SODIUM CHLORIDE 0.9% 500 ML IV ONE (19:11)
--- NOTE | 2019-12-16 00:25 | Emergency Department Note ---
ED Visit Note The patient is a 39-year-old female that I received a change of shift signout from Dr. Perez. Please see his note for initial history and physical exam. The patient presented to the emergency department with her significant other with very severe mental health problems. The patient had significant suicidal ideation when she was very intoxicated at that time. The patient was reevaluated multiple times. She does have a history of alcohol intoxication in the past. The patient was treated with multiple doses of Ativan for early alcohol withdrawal symptoms. I reviewed the patient's laboratory and radiographic studies with her. She was no longer clinically intoxicated on my subsequent reevaluation. Patient was evaluated by the mental health outpatient case manager in the emergency department. She was not felt to need any further mental health treatment at this time. When I talked to the patient she has no suicidal homicidal ideation. She recently had a loss in her family and it sounds though this was a very reactive process but the patient is starting to have withdrawal symptoms and she states that she does not wish to continue drinking alcohol. I am very concerned that she may have more severe symptoms. I discussed this with the patient and she was agreeable to be evaluated by the hospitalist. I discussed this case with the on-call [facility] hospitalist. They have agreed to evaluate the patient in the emergency department for further management and disposition. . : Alcohol intoxication Qualifiers: Complication of substance-induced condition: uncomplicated Qualified Code(s): F10.920 - Alcohol use, unspecified with intoxication, uncomplicated Depression Qualifiers: Depression Type: reactive depression Qualified Code(s): F32.9 - Major depressive disorder, single episode, unspecified
[2019-12-16] MEDS ORDERED: LACTATED RINGER'S 1,000 ML IV ONE (01:01)
[2019-12-16] MEDS ORDERED: GABAPENTIN 600 MG TAB PO STA (01:01)
[2019-12-16] MEDS ORDERED: LORazepam 1 MG/2 ML VIAL IV STA (01:14)
--- NOTE | 2019-12-16 01:45 | History & Physical Report ---
Date of Service December 16, 2019 Assessment & Plan (1) Alcohol withdrawal: mood disorder, suboptimal Possible anxiety disorder GERD, stable on regimen Alcoholic hepatitis Medical telemetry DT precautions Follow LFTs, GI consult if with progression (Patient known to Dr. Graves.) Psych consult RE anxiety Social service RE discharge planning DVT prophylaxis per Lovenox subcu Full code History of Present Illness Chief Complaint: Alcohol overdose Primary Care Provider: Corazon Yeh History obtained from patient and records. Medical history significant for mood disorder, GERD, history of bariatric surgery. Patient undergoing a lot of stress the last few weeks with new work, recent in the family, and her daughter going off to college. Admits to alcohol binging. Transient suicidal ideation a few days back because she felt like a loser as per records. Patient was found by her lying face down outside their home yesterday intoxicated. She was brought to the ER for evaluation. Patient not suicidal as per psych liaison after evaluation at the ER. Patient contemplating alcohol detox. No prior history of alcohol withdrawal seizures or intubation for alcohol withdrawal as per patient account. Admits to overwhelming episodes of anxiety. Patient denies chest pain, S OB. 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 Allergies Allergy/AdvReac Type Severity Reaction Status Date / Time No Known Allergies Allergy Unverified 12/15/19 14:11 Home Medications Home Medications Medication Instructions Recorded Confirmed Type Escitalopram (Lexapro) 10 mg PO DAILY #0 tab 11/20/13 12/15/19 History trazodone 25 mg PO HS PRN 12/15/19 12/15/19 History Past Med/Surg History Medical History No pertinent past medical history Surgical History H/O unilateral oophorectomy Family History Other No pertinent family history in first degree relatives Social History Feels Safe at Home: Yes Smoking Status: Never smoker Review of Systems Review of Systems: As per HPI, all 10 systems reviewed, all other ROS negative Physical Exam Physical Exam: GENERAL: Comfortable, tremulous, looks younger for stated age, pleasant no respiratory distress SKIN: Normal color, warm HEENT: [place] palpebral conjunctivae, no ptosis, dry buccal mucosa NECK : Supple, no tenderness CHEST : CTA, no tenderness HEART : Tachycardic , no obvious murmurs ABDOMEN: Some distention, nontender EXTREMITIES : No LE swelling/tenderness, no other conspicuous deformities noted NEUROLOGIC : Coherent, no facial asymmetry, tremulous, no other gross focality Results & Data Vital Signs (Past 12 Hours) Vital Signs Pulse Pulse Resp BP BP Pulse Ox 12/16/19 01:30 146 H 14 104/88 12/16/19 01:01 122 H 19 12/16/19 01:00 119 H 23 123/64 12/16/19 00:30 104 H 22 12/16/19 00:00 119 H 20 117/86 12/15/19 23:30 106 H 17 104/49 L 12/15/19 23:01 123 H 15 96 12/15/19 23:00 111 H 16 117/67 96 12/15/19 22:33 125 H 16 98 12/15/19 22:31 118 H 25 H 103/67 12/15/19 22:30 127 H 23 95 12/15/19 22:01 117 H 24 95 12/15/19 22:00 109 H 18 92/54 L 96 12/15/19 21:30 108 H 14 106/79 96 12/15/19 21:00 109 H 22 104/65 96 12/15/19 20:30 115 H 20 115/76 96 12/15/19 20:00 128 H 15 116/72 12/15/19 19:30 110 H 12 112/89 96 12/15/19 19:00 111 H 20 113/76 97 12/15/19 18:30 123 H 18 118/72 96 12/15/19 18:00 118 H 18 93/60 L 94 12/15/19 17:30 109 H 22 94/60 L 94 12/15/19 17:00 114 H 19 108/71 97 12/15/19 16:30 98 H 13 98 12/15/19 16:00 121 H 19 113/74 97 12/15/19 15:40 119 H 21 94 12/15/19 15:38 126 H 20 83/52 L 94 12/15/19 15:32 125 H 22 83/52 L 94 Laboratory Results Laboratory Results WBC 6.93 K/uL (4.8-10.8) 12/15/19 13:05 RBC 5.54 M/uL (4.2-5.4) H 12/15/19 13:05 Hgb 17.4 g/dL (12.0-16.0) H 12/15/19 13:05 Hct 48.9 % (37-47) H 12/15/19 13:05 MCV 88.3 fL (80-100) 12/15/19 13:05 MCH 31.4 pg (25-34) 12/15/19 13:05 MCHC 35.6 g/dL (32-36) 12/15/19 13:05 RDW Std Deviation 41.5 fL (36.4-46.3) 12/15/19 13:05 RDW Coeff of Jose Enrique 13.0 % (11.5-14.5) 12/15/19 13:05 Plt Count 153 K/uL (130-400) 12/15/19 13:05 MPV 8.9 fL (7.4-10.4) 12/15/19 13:05 Immature Gran % (Auto) 0.1 % 12/15/19 13:05 Neut % (Auto) 73.5 % 12/15/19 13:05 Lymph % (Auto) 22.5 % 12/15/19 13:05 [place] % (Auto) 3.6 % 12/15/19 13:05 Eos % (Auto) 0.0 % 12/15/19 13:05 Baso % (Auto) 0.3 % 12/15/19 13:05 Immature Gran # (Auto) 0.01 K/uL (0.00-0.02) 12/15/19 13:05 Neut # (Auto) 5.09 K/uL (1.4-6.5) 12/15/19 13:05 Lymph # (Auto) 1.56 K/uL (1.2-3.4) 12/15/19 13:05 [place] # (Auto) 0.25 K/uL (0.11-0.59) 12/15/19 13:05 Eos # (Auto) 0.00 K/uL (0-0.5) 12/15/19 13:05 Baso # (Auto) 0.02 K/uL (0-0.2) 12/15/19 13:05 Sodium 141 mmol/L (136-145) 12/15/19 13:05 Potassium 3.9 mmol/L (3.5-5.1) 12/15/19 13:05 Chloride 103 mmol/L (98-107) 12/15/19 13:05 Carbon Dioxide 24 mmol/L (21-32) 12/15/19 13:05 Anion Gap 14.0 (3-11) H 12/15/19 13:05 BUN 7 mg/dl (7-18) 12/15/19 13:05 Creatinine 0.86 mg/dl (0.6-1.2) 12/15/19 13:05 Est Cr Clr Drug Dosing 77.5 ml/min 12/15/19 13:05 Est GFR ( Amer) 97.3 12/15/19 13:05 Est GFR (Non-Af Amer) 83.9 12/15/19 13:05 BUN/Creatinine Ratio 8.7 (10-20) L 12/15/19 13:05 Glucose 107 mg/dl (70-99) H 12/15/19 13:05 Calcium 8.6 mg/dl (8.5-10.1) 12/15/19 13:05 Total Bilirubin 0.5 mg/dl (0.2-1) 12/15/19 13:05 AST 85 U/L (15-37) H 12/15/19 13:05 ALT 47 U/L (12-78) 12/15/19 13:05 Alkaline Phosphatase 104 U/L (45-117) 12/15/19 13:05 Total Protein 7.6 gm/dl (6.4-8.2) 12/15/19 13:05 Albumin 3.8 gm/dl (3.4-5.0) 12/15/19 13:05 Globulin 3.8 gm/dl (2.5-4.0) 12/15/19 13:05 Albumin/Globulin Ratio 1.0 (0.9-2) 12/15/19 13:05 TSH 1.300 uIu/ml (0.300-4.500) 12/15/19 13:05 Urine Color Yellow 12/15/19 12:03 Urine Appearance Cloudy (Clear) A 12/15/19 12:03 Urine pH 5.5 (4.5-7.5) 12/15/19 12:03 Ur Specific Rosie 1.009 (1.000-1.030) 12/15/19 12:03 Urine Protein Trace (Negative) H 12/15/19 12:03 Urine Glucose (UA) Negative (Negative) 12/15/19 12:03 Urine Ketones 1+ (Negative) H 12/15/19 12:03 Urine Blood Trace (Negative) H 12/15/19 12:03 Urine Nitrite Negative (Negative) 12/15/19 12:03 Urine Bilirubin Negative (Negative) 12/15/19 12:03 Urine Urobilinogen Negative (Negative) 12/15/19 12:03 Ur Leukocyte Esterase Negative (Negative) 12/15/19 12:03 Urine WBC (Auto) 1-5 /hpf (0-5) 12/15/19 12:03 Urine RBC (Auto) 0-4 /hpf (0-4) 12/15/19 12:03 U Hyaline Cast (Auto) 1-5 /lpf (0-5) 12/15/19 12:03 U Epithel Cells (Auto) >30 /lpf (0-5) H 12/15/19 12:03 Urine Bacteria (Auto) 1+ (Negative) H 12/15/19 12:03 POC Ur Test NEG (NEG) 12/15/19 12:03 Salicylates 1.8 mg/dl (2.8-20) L 12/15/19 13:05 Urine Opiates Screen Neg (Neg) 12/15/19 12:03 Ur Methadone, Qual Neg (Neg) 12/15/19 12:03 Acetaminophen < 2 ug/ml (10-30) L 12/15/19 13:05 Urine Barbiturates Neg (Neg) 12/15/19 12:03 Ur Phencyclidine (PCP) Neg (Neg) 12/15/19 12:03 U Amphetamin/Meth Scrn Neg (Neg) 12/15/19 12:03 MDMA (Ecstasy) Screen Neg (Neg) 02/13/20 12:03 U Benzodiazepines Scrn Neg (Neg) 12/15/19 12:03 Ur Cocaine Metabolite Neg (Neg) 12/15/19 12:03 U Marijuana (THC) Screen Neg (Neg) 12/15/19 12:03 Ethyl Alcohol mg/dL 295.0 mg/dl (0-3) H 12/15/19 13:05
[2019-12-16 01:56] LABS: Magnesium 1.6 mg/dl (1.8-2.4)
[2019-12-16] MEDS ORDERED: TRAZODONE HCL 100 MG TAB PO PRN ×2 (02:45→18:33)
[2019-12-16] MEDS ORDERED: ACETAMINOPHEN 325 MG TAB PO PRN (02:45)
[2019-12-16] MEDS ORDERED: OXYCODONE HCL IR 5 MG TAB (IMMEDIATE RELEASE) PO PRN (02:45)
[2019-12-16] MEDS ORDERED: LORazepam 3 MG/6 ML VIAL IV PRN (02:45)
[2019-12-16] MEDS ORDERED: GABAPENTIN 1200MG ALCOHOL WITHDRAWAL LOAD PO STA (02:45)
[2019-12-16] MEDS ORDERED: ATIVAN IV ALCOHOL WITHDRAWL IV PRN (02:45)
[2019-12-16] MEDS: LORazepam 1 MG/2 ML VIAL IV PRN ×3 (03:35→17:14)
[2019-12-16 04:23] LABS: INR 1.1 (0.9-1.1); Prothrombin Time 11.1 Seconds (9.0-12.0)
[2019-12-16 04:31] LABS: Albumin Level 2.8 gm/dl (3.4-5.0); BUN Creatinine Ratio 7.7 (10-20); Calcium 7.4 mg/dl (8.5-10.1); Creatinine Clr Calc Pharmacy 95.2 ml/min; Est GFR (African American) 124.7; Est GFR (Non-African American) 107.6; Potassium 3.5 mmol/L (3.5-5.1)
[2019-12-16 04:38] LABS: Albumin Globulin Ratio 1.1 (0.9-2); Bilirubin,Total 0.9 mg/dl (0.2-1); Globulin 2.5 gm/dl (2.5-4.0); Total Protein 5.3 gm/dl (6.4-8.2)
[2019-12-16] MEDS: MAGNESIUM SULFATE / D5W 1 GM/100 ML BAG IV SCH ×2 (04:57→06:01)
[2019-12-16 05:09] LABS: Hematocrit (blood only) 35.3 % (37-47); Hemoglobin 12.4 g/dL (12.0-16.0); Mean Corpuscular Hemoglobin 30.8 pg (25-34); Mean Corpuscular Hgb Conc 35.1 g/dL (32-36); Mean Corpuscular Volume 87.6 fL (80-100); Mean Platelet Volume 8.4 fL (7.4-10.4); Platelet Count 86 K/uL (130-400); RDW Coefficient of Variation 12.7 % (11.5-14.5); RDW Standard Deviation 41.1 fL (36.4-46.3); Red Blood Count 4.03 M/uL (4.2-5.4); White Blood Count 3.78 K/uL (4.8-10.8)
[2019-12-16 05:10] LABS: Basophils # (auto) 0.01 K/uL (0-0.2); Basophils % (auto) 0.3 %; Eosinophils # (auto) 0.03 K/uL (0-0.5); Eosinophils % (auto) 0.8 %; Lymphocytes # (auto) 1.23 K/uL (1.2-3.4); Lymphocytes % (auto) 32.5 %; Monocytes # (auto) 0.26 K/uL (0.11-0.59); Monocytes % (auto) 6.9 %; Neutrophils # (auto) 2.25 K/uL (1.4-6.5); Neutrophils % (auto) 59.5 %; Platelet Estimate Decreased (Normal)
[2019-12-16] MEDS: GABAPENTIN 600 MG TAB PO SCH ×3 (06:42→21:44)
[2019-12-16] MEDS: LORazepam 2 MG/4 ML VIAL IV PRN ×2 (07:29→22:01)
[2019-12-16] MEDS ORDERED: ENOXAPARIN INJ 40 MG/0.4 ML SYR SQ SCH (09:00)
[2019-12-16] MEDS: ESCITALOPRAM OXALATE 20 MG TAB PO SCH ×2 (09:53→10:19)
[2019-12-16] MEDS: MULTIVITAMIN TAB PO SCH (09:53)
[2019-12-16] MEDS: PROMETHAZINE HCL 12.5 MG in SODIUM CHLORIDE 0.9% 50 ML IV PRN ×2 (09:56→18:28)
--- NOTE | 2019-12-16 15:30 | Psychiatric Consultation ---
Date of Consultation December 16, 2019 Impression / Recommendations Impression Dr. Wes Tate was directly involved in review and discussion of the patient's case and participated in medical decision making regarding treatment recommendations. RECOMMENDATIONS: 12/16/2019 - Continue treatment for alcohol detoxification per primary team. Given recent alcohol abuse, would advise against any prescriptions for benzodiazepines on discharge. - Primary recommendation is for inpatient D&A rehabilitation, patient made aware of this recommendation and is considering options. Will defer to case management for further discussion. There are programs that are tailored to professions, and this may be a better fit for this particular patient. - No recommendations for medication adjustments at this time. Titration of SSRI could contribute to lowering seizure threshold which further exacerbates risk of seizure in acute alcohol detoxification. Recommend follow-up with outpatient psychiatric treatment. - Will attempt to gather collateral information from the patient's regarding safety at home. Pt states that she grabbed pills, but was stopped by - admitting that the brief episode of SI was in the context of alcohol intoxication and that she does not experience hopelessness at baseline. Denies history of suicide attempts, past SI, or previous inpatient psychiatric treatment. At this time, there does not seem to be criteria for inpatient psychiatric admission, though would like to discuss further with . - Please reach out to our service with any additional questions or updates Risk Factors Assessment Do You Have Access To A Gun?: Yes Psych History Identifying Data 39-year-old female admitted medically on 12/16/2019 after presenting to the ED with alcohol intoxication. Psychiatric consultation was requested to evaluate the patient for reported anxiety. Chief Complaint "My daughter was supposed to be in college. I found out she dropped out and moved away with her boyfriend. I found this all out the day before I learned about my cousin." History of Present Illness Grazyna Angeles is a 39-year-old female admitted medically on 12/16/2019 after presenting to the ED with alcohol intoxication. It is reported that the patient was found face down, passed out outside behind her house. Patient did endorse an increase in alcohol use related to numerous psychosocial stressors. She did report to psychiatric liaison's that "everything hit the fan this week." Patient endorsed that she had recently experienced the of a cousin, a 12-year-old who reportedly shot himself in the face. Patient is cooperative with psychiatric evaluation, and provides verbal consent to allow Diamante Estrada PA-C to observe today's encounter. Patient states she has been bearing a lot of the burden of supporting her cousin's parents through this difficult time, though she is admittedly "struggling to deal with it all myself." Patient states that on top of this her daughter recently quit college which has been an additional stressor. Patient states that at baseline she consumes alcohol about 3 days/week. She does admit that within the last week she has been drinking excessively more. Patient is unable to quantify the amount of alcohol she has been consuming for this provider stating "it is probably too much to count." Patient does endorse that there was a period recently in which she had a handful of pills and had verbalized to her "I could just kill myself." Before the patient could do anything harmful, the patient's remove the pills from her possession. Patient states that this suicidal gesture was within the context of alcohol intoxication, as she denies experiencing those thoughts at any other point in time. Patient states that she does not have a history of suicidal ideation, and denies any previous suicide attempts. Patient denies history of inpatient psychiatric treatment. Patient does admit to increased anxiety in the context of these recent str essors, but denies symptoms suggestive of an underlying depressive disorder. Pt has been getting medications prescribed by her PCP. Pt does confirm a home psychotropic medication regimen of fluoxetine 20mg daily and trazodone 75mg daily. Recommendations for inpatient drug and alcohol rehabilitation were reviewed with the patient, who is rather resistant at this time. Patient states that she recently started a new job and "I have to be at work on Thursday." We discussed the importance of prioritizing substance abuse treatment, as patient does admit to a desire to abstain from further alcohol use. Various options for substance abuse treatment were reviewed, and patient was recommended to engage in conversation with case management to discuss these options further. Past Psychiatric History Outpatient Services: Denies Previous Psych Admissions: Denies Do You Have Access To A Gun?: Yes History of Previous Suicide Attempt: No Past Medication Trials: Per patient report: 1. Lexapro - reported dizziness as a side effect, it is not a currently home medication 2. Prozac 3. Trazodone Allergies Allergy/AdvReac Type Severity Reaction Status Date / Time No Known Allergies Allergy Unverified 12/15/19 14:11 Home Medications Home Medications Medication Instructions Recorded Confirmed Type Escitalopram (Lexapro) 10 mg PO DAILY #0 tab 11/20/13 12/15/19 History trazodone 25 mg PO HS PRN 12/15/19 12/15/19 History Family History Reports mother and aunt have OCD and depression. The 12y/o son of the patient's cousin reportedly shot himself in the face 1 week prior to admission, it is reportedly presumed that this was a suicide attempt. Substance Abuse History Pt admits to episodes of binge drinking for the past 2 years - generally until she passes out. She admits to hiding alcohol around the house. Pt states she is able to drink up to 1/2 gallon of vodka a day She denies history of formal D&A treatment in the past. 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) Marital Status: Number Of Children: 3 Beliefs That Will Affect Care: Yarsani (Yazidism) History of Legal Problems: Denies Psychological Trauma History Comment: Denies Patient History Medical History No pertinent past medical history Surgical History H/O unilateral oophorectomy Family History Other No pertinent family history in first degree relatives Social History Preferred Language: Upper Sorbian Communication Ability: Effective 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 old nephew shot himself) Feels Safe at Home: Yes Safety Concerns: Feels Safe At This Time Smoking Status: Never smoker Do You Dip or Chew Tobacco: No ; Second Hand Exposure: No ; Tobacco Cessation Education Requested by Patient: No Hx Alcohol Use: Yes Alcohol type: wine, hard liquor and other Hx Substance Use: No Physical Exam Psychiatric: Orientation: alert, oriented x 3 and cooperative Apperance: appropriately dressed, + disheveled and appeared stated age; + inappropriately groomed Eye Contact: + fair eye contact (Intermittently drifting off to sleep) Motor Behavior: + tremor Speech: normal rate/rhythm/volume of speech Affect: + blunted affect (Appearing fatigued) Mood: + depressed mood (Specifically as it relates to recent events) and + anxious mood Thought Process: goal directed thought process, clear/coherent thought process and thought association intact Thought Content: reality based without delusions; no hopelessness Suicidal Thoughts: denies suicidal thoughts States one incident of suicidal ideation was within the context of alcohol intoxication Homicidal Thoughts: denies homicidal thoughts Hallucinations: no auditory hallucinations and no visual hallucinations Cognition: attention grossly intact and language grossly intact Insight: + limited insight Judgement: + limited judgement Vital Signs (Past 24 Hours): Last Vital Signs Temp 36.8 C 12/16/19 10:56 Pulse 108 H 12/16/19 11:22 Resp 16 12/16/19 10:56 BP 110/70 12/16/19 10:56 Pulse Ox 95 12/16/19 10:56 Review of Systems Constitutional: reporting fatigue and generalized weakness Cardiovascular: denied Respiratory: denied Gastrointestinal: denied Neurological: denied Psychiatric: denies symptoms other than stated above Total of at least 10 systems reviewed, pertinent positives as above and in HPI. Results & Data (PSY) Medications Administered Lorazepam (Ativan) 1 mg in 2 mls @ 2 mls/min IV UD PRN; Protocol PRN Reason: EtOH Withdrawl AWSS Score 6,7 Stop: 01/15/20 02:44 Last Admin: 12/16/19 12:24 Dose: 2 mls/min Documented by: [id number] Admin: 12/16/19 03:35 Dose: 2 mls/min Documented by: [id number] Lorazepam (Ativan) 2 mg in 4 mls @ 4 mls/min IV UD PRN; Protocol PRN Reason: EtOH Withdrawl AWSS Score 8,9 Stop: 01/15/20 02:44 Last Admin: 12/16/19 07:29 Dose: 4 mls/min Documented by: [id number] Promethazine HCl 12.5 mg/ (Sodium Chloride) 50.5 mls @ 202 mls/hr IV Q6H PRN PRN Reason: Nausea And Vomiting Stop: 01/15/20 02:44 Last Infusion: 12/16/19 10:20 Dose: 0 mls/hr Documented by: [id number] Admin: 12/16/19 09:56 Dose: 202 mls/hr Documented by: [id number] Multivitamins (Multivitamin Tab) 1 tab PO QAM FRITZ Stop: 01/15/20 08:59 Last Admin: 12/16/19 09:53 Dose: 1 tab Documented by: [id number] Coding Level of Care Code 03920 [facility] Intl Hosp Care Lvl 2
--- NOTE | 2019-12-16 17:58 | Hospitalist Progress Note ---
Date of Service December 16, 2019 Assessment & Plan Admission and Anticipated Discharge Date Admission Date: December 16, 2019 Subjective Patient seen and examined on the floor, she is lying in bed comfortably, says that she feels better this morning. She complains of palpitations, anxiety, otherwise denies any fevers, chills, shortness of breath, abdominal pain. She ate half of her lunch. Currently was resting. She is tachycardic, on physical exam, and when reviewing her chart, she has been tachycardic, receiving as needed Ativan. She is clear to auscultation bilaterally, no wheezing or rhonchi noted. Abdomen is soft nontender nondistended. Moves all 4 extremities spontaneously. Skin is warm dry and well-perfused. Patient is tachycardic, no murmurs noted. Discussed what brought her to the hospital, patient admits buying a bottle of vodka, after her nephew's , and then was found lying down in the yard by her . And brought to the hospital. Patient denies taking any medicatio ns besides her regular trazodone and Prozac, denies taking more pills than prescribed. Says that she only drank vodka she bought. Patient received IV fluids, as needed Ativan, gabapentin, psychiatry was consulted and following. We will replace potassium, and will recheck blood work. Results & Data ([facility]) Vital Signs (Past 12 Hours) Vital Signs Temp Pulse Pulse Pulse Resp BP BP 12/16/19 16:13 36.9 C 116 H 18 122/81 12/16/19 11:22 108 H 12/16/19 10:56 36.8 C 128 H 16 110/70 12/16/19 09:00 36.8 C 118 H 16 107/66 12/16/19 08:00 111 H 12/16/19 07:00 36.5 C 127 H 20 100/67 Pulse Ox 12/16/19 16:13 96 12/16/19 11:22 12/16/19 10:56 95 12/16/19 09:00 94 12/16/19 08:00 12/16/19 07:00 99
[2019-12-16] MEDS ORDERED: POTASSIUM CHLORIDE 20 MEQ TABCR PO ONE (18:00)
[2019-12-16 18:16] LABS: Hematocrit (blood only) 37.3 % (37-47); Hemoglobin 12.9 g/dL (12.0-16.0); Mean Corpuscular Hemoglobin 31.2 pg (25-34); Mean Corpuscular Volume 90.3 fL (80-100); RDW Coefficient of Variation 12.7 % (11.5-14.5); RDW Standard Deviation 41.5 fL (36.4-46.3); Red Blood Count 4.13 M/uL (4.2-5.4); White Blood Count 3.23 K/uL (4.8-10.8)
[2019-12-16 18:26] LABS: Prothrombin Time 10.6 Seconds (9.0-12.0)
[2019-12-16] MEDS: POTASSIUM CHLORIDE / WTR 10 MEQ/100 ML PLCT IV SCH ×2 (18:31→19:48)
[2019-12-16 18:34] LABS: Alanine Aminotransferase 35 U/L (12-78); Albumin Level 2.9 gm/dl (3.4-5.0); Aspartate Aminotransferase 60 U/L (15-37); BUN Creatinine Ratio 3.9 (10-20); Bilirubin Direct < 0.1 mg/dl (0-0.2); Blood Urea Nitrogen 3 mg/dl (7-18); Calcium 8.4 mg/dl (8.5-10.1); Carbon Dioxide 27 mmol/L (21-32); Chloride 107 mmol/L (98-107); Creatinine Clr Calc Pharmacy 86.5 ml/min; Est GFR (African American) 111.2; Est GFR (Non-African American) 95.9; Glucose 142 mg/dl (70-99); Sodium 139 mmol/L (136-145)
[2019-12-16 18:36] LABS: Mean Corpuscular Hgb Conc 34.6 g/dL (32-36); Mean Platelet Volume 9.5 fL (7.4-10.4); Platelet Count 98 K/uL (130-400); Platelet Estimate Decreased (Normal)
[2019-12-16 18:37] LABS: Alkaline Phosphatase 79 U/L (45-117); Bilirubin,Total 0.6 mg/dl (0.2-1); Total Protein 5.6 gm/dl (6.4-8.2)
[2019-12-17] MEDS: LORazepam 2 MG/4 ML VIAL IV PRN ×2 (02:23→06:13)
[2019-12-17] MEDS: GABAPENTIN 600 MG TAB PO SCH ×2 (05:04→14:47)
--- NOTE | 2019-12-17 07:42 | Electrocardiogram Report ---
Test Reason : Blood Pressure : / mmHG Vent. Rate : 130 BPM Atrial Rate : 130 BPM P-R Int : 126 ms QRS Dur : 078 ms QT Int : 392 ms P-R-T Axes : 075 072 023 degrees QTc Int : 576 ms Sinus tachycardia Low voltage QRS Abnormal ECG When compared with ECG of 11-JUL-2017 10:05, HR has increased Confirmed by Trino Graham ([id number]) on 12/17/2019 7:42:17 AM Referred By: REFERRED SELF Confirmed By:Trino Graham
[2019-12-17] MEDS: PROMETHAZINE HCL 12.5 MG in SODIUM CHLORIDE 0.9% 50 ML IV PRN ×2 (07:50→17:20)
[2019-12-17 08:00] LABS: Hematocrit (blood only) 37.9 % (37-47); Hemoglobin 12.9 g/dL (12.0-16.0); Mean Corpuscular Hemoglobin 31.2 pg (25-34); Mean Corpuscular Volume 91.5 fL (80-100); RDW Coefficient of Variation 12.7 % (11.5-14.5); RDW Standard Deviation 42.5 fL (36.4-46.3); Red Blood Count 4.14 M/uL (4.2-5.4); White Blood Count 3.15 K/uL (4.8-10.8)
[2019-12-17 08:09] LABS: Mean Platelet Volume 9.5 fL (7.4-10.4); Platelet Count 88 K/uL (130-400)
[2019-12-17] MEDS: MULTIVITAMIN TAB PO SCH (08:30)
[2019-12-17] MEDS: FOLIC ACID 1 MG in SYRINGE 9.8 ML IV SCH (08:30)
[2019-12-17] MEDS: THIAMINE HCL 100 MG TAB PO SCH (08:30)
[2019-12-17 08:39] LABS: Alanine Aminotransferase 41 U/L (12-78); Albumin Level 2.9 gm/dl (3.4-5.0); Aspartate Aminotransferase 84 U/L (15-37); BUN Creatinine Ratio 4.7 (10-20); Bilirubin Direct < 0.1 mg/dl (0-0.2); Blood Urea Nitrogen 3 mg/dl (7-18); Calcium 8.6 mg/dl (8.5-10.1); Carbon Dioxide 29 mmol/L (21-32); Chloride 107 mmol/L (98-107); Creatinine Clr Calc Pharmacy 92.5 ml/min; Est GFR (African American) 120.6; Glucose 91 mg/dl (70-99); Potassium 4.4 mmol/L (3.5-5.1); Sodium 139 mmol/L (136-145)
[2019-12-17 08:42] LABS: Alkaline Phosphatase 77 U/L (45-117); Bilirubin,Total 0.6 mg/dl (0.2-1); Total Protein 5.6 gm/dl (6.4-8.2)
--- NOTE | 2019-12-17 08:53 | Hospitalist Progress Note ---
Date of Service December 17, 2019 Assessment & Plan (1) Alcohol withdrawal: Medical telemetry DT precautions (lorazepam per protocol) Psych consult RE anxiety/suicidal thoughts reported on admission thiamine, folate Social service RE discharge planning Alcoholic hepatitis Follow LFTs, mildly increasing - consider GI consult if cont. progression (Patient known to Dr. Woo) Mood disorder, suboptimal Possible anxiety disorder - pt on prozac, SSRI can lower seizure treshold, will hold for now GERD, stable on regimen DVT prophylaxis per Lovenox subcu Full code Admission and Anticipated Discharge Date Admission Date: December 16, 2019 Subjective Pt is lying in bed, has mild tremors, remains tachycardic. Tolerates PO intake, denies abd. pain, nausea, vomiting. Denies chest pain, shortness of breath. Review of Systems Review of Systems: All systems reviewed & are unremarkable except as noted in HPI & below Constitutional: no fever and no chills Respiratory: no cough and no dyspnea Cardiovascular: + palpitations; no chest pain and no edema Gastrointestinal: no abdominal pain, no nausea and no vomiting Neurologic: + tremor(s) Physical Exam Physical Exam: GENERAL: middle aged female, lying in bed, in no respiratory distress HEENT: NC/AT, EOMI, PERRL NECK : Supple, no tenderness CHEST : CTA, no tenderness HEART : Tachycardic , no obvious murmurs ABDOMEN: + bowel sounds, soft, nontender, nondistended EXTREMITIES : No LE swelling/tenderness, no other conspicuous deformities noted SKIN: warm, dry NEUROLOGIC : alert and oriented, no facial asymmetry,+ tremulous, moves extremities spontaneously Results & Data ([facility]) Vital Signs (Past 12 Hours) Vital Signs Temp Pulse Pulse Resp BP BP Pulse Ox 12/17/19 07:00 36.6 C 86 109 H 16 104/71 97 12/17/19 03:00 36.6 C 112 H 18 115/79 97 12/16/19 23:10 36.7 C 105 H 20 125/85 96 12/16/19 22:58 98 H Laboratory Results 12/17/19 12/17/19 12/16/19 Range/Units 07:24 07:24 17:50 WBC 3.15 L (4.8-10.8) K/uL RBC 4.14 L (4.2-5.4) M/uL Hgb 12.9 (12.0-16.0) g/dL Hct 37.9 (37-47) % MCV 91.5 (80-100) fL MCH 31.2 (25-34) pg MCHC 34.0 (32-36) g/dL RDW Std Deviation 42.5 (36.4-46.3) fL RDW Coeff of Jose Enrique 12.7 (11.5-14.5) % Plt Count 88 L (130-400) K/uL MPV 9.5 (7.4-10.4) fL Platelet Estimate (Normal) PT 10.6 (9.0-12.0) Seconds INR 1.0 (0.9-1.1) Sodium 139 (136-145) mmol/L Potassium 4.4 (3.5-5.1) mmol/L Chloride 107 (98-107) mmol/L Carbon Dioxide 29 (21-32) mmol/L Anion Gap 4.0 (3-11) BUN 3 L (7-18) mg/dl Creatinine 0.72 (0.6-1.2) mg/dl Est Cr Clr Drug Dosing 92.5 ml/min Est GFR ( Amer) 120.6 Est GFR (Non-Af Amer) 104.0 BUN/Creatinine Ratio 4.7 L (10-20) Glucose 91 (70-99) mg/dl Calcium 8.6 (8.5-10.1) mg/dl Magnesium 2.0 (1.8-2.4) mg/dl Total Bilirubin 0.6 (0.2-1) mg/dl Direct Bilirubin < 0.1 (0-0.2) mg/dl AST 84 H (15-37) U/L ALT 41 (12-78) U/L Alkaline Phosphatase 77 (45-117) U/L Total Protein 5.6 L (6.4-8.2) gm/dl Albumin 2.9 L (3.4-5.0) gm/dl 12/16/19 12/16/19 Range/Units 17:50 17:50 WBC 3.23 L (4.8-10.8) K/uL RBC 4.13 L (4.2-5.4) M/uL Hgb 12.9 (12.0-16.0) g/dL Hct 37.3 (37-47) % MCV 90.3 (80-100) fL MCH 31.2 (25-34) pg MCHC 34.6 (32-36) g/dL RDW Std Deviation 41.5 (36.4-46.3) fL RDW Coeff of Jose Enrique 12.7 (11.5-14.5) % Plt Count 98 L (130-400) K/uL MPV 9.5 (7.4-10.4) fL Platelet Estimate Decreased L (Normal) PT (9.0-12.0) Seconds INR (0.9-1.1) Sodium 139 (136-145) mmol/L Potassium 4.0 (3.5-5.1) mmol/L Chloride 107 (98-107) mmol/L Carbon Dioxide 27 (21-32) mmol/L Anion Gap 6.0 (3-11) BUN 3 L (7-18) mg/dl Creatinine 0.77 (0.6-1.2) mg/dl Est Cr Clr Drug Dosing 86.5 ml/min Est GFR ( Amer) 111.2 Est GFR (Non-Af Amer) 95.9 BUN/Creatinine Ratio 3.9 L (10-20) Glucose 142 H (70-99) mg/dl Calcium 8.4 L (8.5-10.1) mg/dl Magnesium 2.0 (1.8-2.4) mg/dl Total Bilirubin 0.6 (0.2-1) mg/dl Direct Bilirubin < 0.1 (0-0.2) mg/dl AST 60 H (15-37) U/L ALT 35 (12-78) U/L Alkaline Phosphatase 79 (45-117) U/L Total Protein 5.6 L (6.4-8.2) gm/dl Albumin 2.9 L (3.4-5.0) gm/dl Medications Administered Current Inpatient Medications Acetaminophen (Tylenol) 325 mg PO Q4H PRN PRN Reason: Pain or Fever Stop: 01/15/20 02:44 Last Admin: 12/17/19 05:04 Dose: 325 mg Documented by: [facility]) [facility] Stop: 01/16/20 08:59 Gabapentin (Neurontin) 600 mg PO Q8H [facility] Stop: 12/17/19 13:01 Last Admin: 12/17/19 05:04 Dose: 600 mg Documented by: Gabapentin (Neurontin) 600 mg PO Q12H [facility] Stop: 12/18/19 13:01 Gabapentin (Neurontin) 600 mg PO Q24H [facility] Stop: 12/19/19 13:01 Lorazepam (Ativan) 1 mg in 2 mls @ 2 mls/min IV UD PRN; Protocol PRN Reason: EtOH Withdrawl AWSS Score 6,7 Stop: 01/15/20 02:44 Last Admin: 12/16/19 17:14 Dose: 2 mls/min Documented by: Lorazepam (Ativan) 2 mg in 4 mls @ 4 mls/min IV UD PRN; Protocol PRN Reason: EtOH Withdrawl AWSS Score 8,9 Stop: 01/15/20 02:44 Last Admin: 12/17/19 06:13 Dose: 4 mls/min Documented by: Folic Acid 1 mg/ Syringe 10 mls @ 5 mls[facility] Stop: 01/16/20 08:59 Last Admin: 12/17/19 08:30 Dose: 5 mls/min Documented by: Lorazepam (Ativan) 3 mg in 6 mls @ 4 mls/min IV ONCE PRN; Protocol PRN Reason: EtOH Withdrawl AWSS Score >=10 Stop: 01/15/20 02:44 Promethazine HCl 12.5 mg/ (Sodium Chloride) 50.5 mls @ 202 mls/hr IV Q6H PRN PRN Reason: Nausea And Vomiting Stop: 01/15/20 02:44 Last Infusion: 12/17/19 08:29 Dose: Infused Documented by: Multivitamins (Multivitamin Tab) 1 tab PO [facility] Stop: 01/15/20 08:59 Last Admin: 12/17/19 08:30 Dose: 1 tab Documented by: Oxycodone HCl (Roxicodone Immediate Rel) 5 mg PO Q4H PRN PRN Reason: Pain Stop: 12/30/19 02:44 Thiamine HCl (Vitamin B-1) 100 mg PO [facility] Stop: 01/16/20 08:59 Last Admin: 12/17/19 08:30 Dose: 100 mg Documented by: Trazodone HCl (Desyrel) 75 mg PO HS PRN PRN Reason: Insomnia Stop: 01/15/20 02:44
[2019-12-17] MEDS ORDERED: FLUOXETINE HCL 20 MG CAP PO SCH (09:00)
[2019-12-17 09:30] LABS: Prothrombin Time 10.6 Seconds (9.0-12.0)
[2019-12-17] MEDS: LORazepam 1 MG/2 ML VIAL IV PRN ×4 (11:20→22:15)
[2019-12-17] MEDS ORDERED: TRAZODONE HCL 50 MG TAB PO PRN (22:25)
[2019-12-18] MEDS: GABAPENTIN 600 MG TAB PO SCH ×2 (01:06→13:08)
[2019-12-18 05:17] LABS: Hematocrit (blood only) 39.4 % (37-47); Hemoglobin 13.7 g/dL (12.0-16.0); Mean Corpuscular Hemoglobin 31.8 pg (25-34); Mean Corpuscular Hgb Conc 34.8 g/dL (32-36); Mean Corpuscular Volume 91.4 fL (80-100); RDW Coefficient of Variation 12.5 % (11.5-14.5); RDW Standard Deviation 42.1 fL (36.4-46.3); Red Blood Count 4.31 M/uL (4.2-5.4); White Blood Count 3.92 K/uL (4.8-10.8)
[2019-12-18 05:35] LABS: Prothrombin Time 10.1 Seconds (9.0-12.0)
[2019-12-18 05:42] LABS: Albumin Level 3.1 gm/dl (3.4-5.0); Calcium 8.8 mg/dl (8.5-10.1); Est GFR (African American) 116.6; Est GFR (Non-African American) 100.6; Potassium 4.4 mmol/L (3.5-5.1)
[2019-12-18 05:43] LABS: Mean Platelet Volume 9.1 fL (7.4-10.4); Platelet Count 87 K/uL (130-400)
[2019-12-18 05:44] LABS: Bilirubin,Total 0.7 mg/dl (0.2-1); Total Protein 6.2 gm/dl (6.4-8.2)
[2019-12-18 06:15] LABS: Bilirubin Direct 0.2 mg/dl (0-0.2)
[2019-12-18] MEDS: LORazepam 1 MG/2 ML VIAL IV PRN ×2 (06:31→12:00)
[2019-12-18] MEDS: MULTIVITAMIN TAB PO SCH (08:03)
[2019-12-18] MEDS: THIAMINE HCL 100 MG TAB PO SCH (08:03)
[2019-12-18] MEDS: FOLIC ACID 1 MG in SYRINGE 9.8 ML IV SCH (10:05)
[2019-12-18] MEDS: PROMETHAZINE HCL 12.5 MG in SODIUM CHLORIDE 0.9% 50 ML IV PRN (11:31)
--- NOTE | 2019-12-18 11:32 | Discharge Summary ---
Date of Service December 18, 2019 Admission HPI Per Admitting Provider History obtained from patient and records. Medical history significant for mood disorder, GERD, history of bariatric surgery. Patient undergoing a lot of stress the last few weeks with new work, recent in the family, and her daughter going off to college. Admits to alcohol binging. Transient suicidal ideation a few days back because she felt like a loser as per records. Patient was found by her lying face down outside their home yesterday intoxicated. She was brought to the ER for evaluation. Patient not suicidal as per psych liaison after evaluation at the ER. Patient contemplating alcohol detox. No prior history of alcohol withdrawal seizures or intubation for alcohol withdrawal as per patient account. Admits to overwhelming episodes of anxiety. Patient denies chest pain, S OB. 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 Discharge Data Allergies Allergy/AdvReac Type Severity Reaction Status Date / Time No Known Allergies Allergy Unverified 12/15/19 14:11 Consultations 12/16/19 00:21 ED Decision to Admit Stat 12/16/19 02:45 Consult Case Management - Discharge Planning Routine Consult Psychiatry Routine 12/18/19 10:10 Consult Gastroenterology Routine Discharge Plan Discharge Items Patient Disposition: Home - Self-Care Reason For Visit: ALCOHOL WITHDRAWAL Discharge Diagnosis: Alcohol intoxication, alcohol withdrawal, depression, alcoholic liver disease Activity: As commented below Non-emergency contact: Primary Care Provider Call non-emergency contact if: you have any medication questions Follow-up/Referrals: Corazon Yeh D.O. [Primary Care Provider] - Diet: Regular Addtl Attending Provider Instructions: It is absolutely crucial, that you abstain from alcohol. Make sure to follow-up with your primary care provider within 1 week. Do not ta ke your Prozac until then, and discuss your clinical progress with your primary care doctor. In the meantime, you can take Ativan, 1 tablet, up to 3 times a day, for anxiety, tremors, palpitations, increased heart rate. You will also need to follow up with gastroenterology, will likely need ultrasound of your liver, for further evaluation. Continue to take thiamine and folic acid daily. Strongly recommend alcohol cessation counseling/therapy. Pending Studies at Discharge: No Stand-Alone Forms: My [facility], Smoking Cessation, Suicide Prevention Resources Medications and DC Order Prescriptions: New thiamine HCl (vitamin B1) [Vitamin B-1] 100 mg Tablet 100 mg PO QAM 30 Days Qty: 30 RF: 0 folic acid 1 mg tablet 1 mg PO DAILY Qty: 30 RF: 0 lorazepam 0.5 mg tablet 0.5 mg PO TID PRN (Reason: anxiety) Qty: 10 RF: 0 Discontinued Escitalopram (Lexapro) 10 MG tablet 10 mg PO DAILY Qty: 0 RF: 0 trazodone 50 mg Tablet 25 mg PO HS PRN (Reason: Anxiety) RF: 0 Discharge Orders: Discharge Order (Routine); Ordered 12/18/19 Ordered By: Markell Greenberg Admission Data Admit Date/Time: 12/16/19 01:47 Attending Provider: Markell Greenberg Admit Provider: Valentin Parker Primary Care Provider: Corazon Yeh Other Providers: Valentin Parker ; Nadia Garcia ; Lin Taylor ; Neha Yao ; Derek Gaxiola ; Samreen Trinidad ; Shila Cardozo ; Bryan Guerrero ; Johanne Patel ; Beto Stein ; Sary Torres ; Yuval Javier ; Kris Tinoco ; Renee Nguyen ; Jil Vaughn ; Mayur Vazquez ; Katie Vargas
--- NOTE | 2019-12-18 12:09 | Gastrointestinal Consultation ---
Date of Consultation December 18, 2019 Assessment & Plan (1) Abnormal LFTs: AST:ALT of 2:1 ratio consistent with alcoholic liver disease, currently with normal bilirubin and INR hence no evidence of acute alcoholic hepatitis that warrants steroids therapy. I counseled her about alcohol cessation and risk of progression to cirrhosis. She ideally needs an ultrasound of the liver however she wants to go home and do it as OP in [place]. ' Thiamin and Folic acid. Check for acute Viral Hepatitis. Recall GI if needed. (2) Alcoholic liver disease: History of Present Illness Reason for Consultation: Abnormal LFTs Requesting Physician: Markell Greenberg MD Attending Physician: Lin Taylor MD History of Present Illness 39 years old female patient presented to the hospital with alcohol intoxicationa and a fall , found to have mild elevation in her LFTs hence GI is consulted. She has nausea but no vomiting, no diarrhea or constipation, no abdominal pain, She has alcohol dependance issues for the last year and recently her step son committed suicide which is worsening her overall depression. Allergies Allergy/AdvReac Type Severity Reaction Status Date / Time No Known Allergies Allergy Unverified 12/15/19 14:11 Home Medications Home Medications Medication Instructions Recorded Confirmed Type folic acid 1 mg PO DAILY #30 tab 12/18/19 Rx lorazepam 0.5 mg PO TID PRN #10 tab 12/18/19 Rx thiamine HCl (vitamin B1) [Vitamin 100 mg PO QAM 30 Days #30 tab 12/18/19 Rx B-1] Patient History Medical History No pertinent past medical history Surgical History H/O unilateral oophorectomy Family History Other No pertinent family history in first degree relatives Social History Preferred Language: Maori Communication Ability: Effective Financial Developer Required: No Beliefs That Will Affect Care: Amish (Jewish) Current Living Situation: Spouse Current Living Situation Comment: in home with Other Information That Helps Us Care for You: Yes (12 yr. old nephew shot himself) Feels Safe at Home: Yes Safety Concerns: Feels Safe At This Time Smoking Status: Never smoker Do You Dip or Chew Tobacco: No ; Second Hand Exposure: No ; Tobacco Cessation Education Requested by Patient: No Hx Alcohol Use: Yes Alcohol type: wine, hard liquor and other Hx Substance Use: No Review of Systems Constitutional: no fever, no chills, no fatigue and no weight loss Eyes: no eye pain and no worsening vision Ear, Nose, Mouth, Throat: no tinnitus, no dizziness, no nasal discharge and no epistaxis Respiratory: no cough, no dyspnea, no dyspnea on exertion and no wheezing Cardiovascular: no chest pain, no orthopnea, no palpitations and no edema Gastrointestinal: as per Subjective / HPI Genitourinary: no dysuria, no urinary frequency, no urinary incontinence and no hematuria Musculoskeletal: no stiffness and no myalgia Neurologic: no localized weakness, no paralysis, no tremor(s) and no headache(s) Endocrine: no polydipsia and no polyuria Hematologic / Lymphatic: no easy bleeding and no night sweats Physical Exam Constitutional: + well hydrated, cooperative and comfortable Eyes: PERRL, conjunctivae normal, anicteric sclerae ENMT: external ear and nose normal, oropharynx normal Neck: normal visual inspection and trachea midline Respiratory: normal respiratory effort, lungs clear to auscultation Auscultation: no wheezes Cardiovascular: RRR, no murmur, no edema Gastrointestinal (Abdomen): normal bowel sounds, soft, nontender, no hepatosplenomegaly Musculoskeletal: no cyanosis or clubbing, extremities motor strength 5/5 Skin: no rashes, warm and dry Neurologic: awake; no focal motor deficits Motor/Sensory: no tremor Results & Data ([facility]) Vital Signs (Past 12 Hours) Vital Signs Temp Pulse Pulse Resp BP BP Pulse Ox 12/18/19 11:15 36.9 C 90 18 101/69 97 12/18/19 11:12 36.8 C 116 H 18 95/68 L 96 12/18/19 07:21 36.8 C 92 H 18 112/64 96 12/18/19 07:00 80 12/18/19 04:25 36.7 C 108 H 20 99/71 L 95 12/18/19 02:49 87 Laboratory Results Laboratory Results - last 24 hr 12/18/19 12/18/19 12/18/19 04:59 04:59 04:59 WBC 3.92 L RBC 4.31 Hgb 13.7 Hct 39.4 MCV 91.4 MCH 31.8 MCHC 34.8 RDW Std Deviation 42.1 RDW Coeff of Jose Enrique 12.5 Plt Count 87 L MPV 9.1 PT 10.1 INR 1.0 Sodium 139 Potassium 4.4 Chloride 105 Carbon Dioxide 31 Anion Gap 3.0 BUN 4 L Creatinine 0.74 Est Cr Clr Drug Dosing 90.0 Est GFR ( Amer) 116.6 Est GFR (Non-Af Amer) 100.6 BUN/Creatinine Ratio 6.0 L Glucose 91 Calcium 8.8 Magnesium 2.0 Total Bilirubin 0.7 Direct Bilirubin 0.2 D AST 169 H ALT 89 H Alkaline Phosphatase 81 Total Protein 6.2 L Albumin 3.1 L
[2019-12-19] MEDS ORDERED: GABAPENTIN 600 MG TAB PO SCH (13:00)
== END 2019-12-18 13:30 | disposition home or self-care (01) | DRG 897 ==
LOC: ED 11:49 → 2W 12-16 01:47